=== PATIENT | female | born 1980 | race Caucasian/White ===

== ENCOUNTER 2022-12-12 13:00 | Outpatient (RCR) | payer BC | END 2022-12-14 | LOC: PT | DX: G63 Polyneuropathy in diseases classified elsewhere (principal); M50.30 Other cervical disc degeneration, unspecified cervical region ==

== ENCOUNTER 2024-02-19 08:00 | Outpatient (RCR) | payer BC | END 2024-03-15 | LOC: PT | DX: M76.01 Gluteal tendinitis, right hip (principal) ==

== ENCOUNTER → 2024-02-19 | Outpatient (CLI) | payer BC | LOC: MAMMO 14:40 | DX: Z12.31 Encounter for screening mammogram for malignant neoplasm of breast (principal); M76.01 Gluteal tendinitis, right hip ==

== ENCOUNTER → 2024-06-04 | Outpatient (CLI) | payer BC | LOC: RAD 10:26 | DX: M25.572 Pain in left ankle and joints of left foot (principal); M25.472 Effusion, left ankle ==

== ENCOUNTER → 2024-06-29 | Outpatient (CLI) | payer BC | LOC: LAB 14:40 | DX: Z13.1 Encounter for screening for diabetes mellitus (principal); Z13.220 Encounter for screening for lipoid disorders ==